=== PATIENT | female | born 1950 | race Caucasian/White ===

== ENCOUNTER → 2016-05-15 | Outpatient (CLI) | payer OTHER ==
--- NOTE | 2016-05-15 19:38 | US ---
Bilateral Lower Extremity Duplex Doppler Interventional Consult Relevant History: The patient has long-standing histories of bilateral lower extremity edema. They are constantly uncomfortable, heavy sensation, and contribute to fatigue and tiredness. They also co ntribute to cramping and pain. Symptoms have been since September 2011. She has gone through multiple alternative routes to figure out t he cause, and to potentially find a solution, including acupuncture, massage therapy, and exercise, w ithout relief. She has also wore knee-high medical grade compression stockings frequently, every day , for the last several years. She heard one of the talks on varicose veins, and is now here to evalu ate whether incompetence can be the cause of her issues. Physical Exam: This is early in the morning. The patient has had a compression stocking on already. I currently do not see any significant swelling. No ulceration, cellulitis, or discoloration. Technique: Upright duplex venous Doppler of both lower extremities are performed, followed by discus daniella with the patient. Findings Right lower extremity: Great saphenous and lesser saphenous systems are normal. Below the knee, elissa ecially at the posterior calf, coming off of the lesser saphenous system, there are multiple tributar ies that are superficially located, with the largest one at 3 mm, that have constant reflux. These a re best seen with color Doppler. There are no perforators. Some of the superficially located tribut sheridan can simply be seen as prominent veins externally, currently not evolved into ropey varicose vei ns. Left lower extremity: The great and lesser saphenous system are normal. To a lesser extent, there a re small tributaries coming off of the lesser saphenous system posteriorly and medially at the ankle that show moderate reflux. Assessment 1. Bilateral tributaries below the knee, particularly posteriorly, right significantly worse than le ft, showing constant reflux. 2. Normal great and lesser saphenous systems bilaterally. 3. I think it is definitively possible that these refluxing tributaries are the cause of persistent swelling and the above mentioned symptoms. Treatment recommendations 1. Bilateral multivessel sclerotherapy. 2. After sclerotherapy treatment, continued application of medical grade knee high compression stock ing is recommended. This was discussed in detail with the patient, who expressed understanding and agreement. Total fnge-be-eokp consultation was half an hour. Crosscutting Measure: Patient's current list of medications including all known prescriptions, over- the-counters, herbals, and vitamin/mineral/dietary supplements are reviewed. Medications' name, dosa ge, frequency, and route of administration are confirmed. Patient is a nonsmoker.
== END ==
LOC: FIMAGING 07:54
PROVIDERS: ATTEND Radiology Diagnostic Radiology
DX: I83.893 Varicose veins of bilateral lower extremities with other complications (principal)

== ENCOUNTER → 2016-05-29 | Day surgery (SDC) | payer OTHER ==
[~2016-05-29] MED LIST: SODIUM TETRADECYL SULFATE 60 MG/2 ML VIAL IV ONE
--- NOTE | 2016-05-29 18:52 | IR ---
Bilateral Multivessel Sclerotherapy Indication: Bilateral leg swelling, right worse than left. Informed Consent: Obtained from the patient. Risks and benefits were discussed. Cross Cutting Measure: Patient's current list of medications including all known prescriptions, over -the-counters, herbals, and vitamin/mineral/dietary supplements are reviewed. Medications' name, dos age, frequency, and route of administration are confirmed. Patient is a non-smoker. Prophylactic Antibiotic: Cefazolin was not ordered and administered for antimicrobial prophylaxis be cause it was not medically necessary. VTE Prophylaxis: There is not an order for VTE prophylaxis to be given within 24 hours of the proced ure end time. VTE prophylaxis was not given because it was not medically necessary. Technique: Patient is placed in prone position. A "timeout" procedure was performed to identify the correct patient and the correct procedure. 1% Xylocaine was used for local anesthetic. All element s of maximal sterile barrier technique, including cap, mask, sterile gown, sterile gloves, large ster ile sheet, hand hygiene, and 2% chlorhexidine for cutaneous antisepsis, followed. Ultrasound evaluation of potential access site was performed. After successfully identifying a paten t vessel, ultrasound guidance was used to puncture the vessel. A permanent recording was created for the patient's record. When ultrasound is used, sterile gel and probe covers are used. Indeed, more varicosities are identified in the right posterior leg. These are selected with 25-gaug e needles, and subsequently treated with 1% SDS Microfoam solution. Excellent distribution, intravas cular, of the sclerosant was confirmed by ultrasound. Similarly, to a smaller extent, posterior left calf veins are treated, as well. The patient applied a compression stocking right away after the procedure. No immediate problems. Impression: Bilateral multivessel sclerotherapy performed below the knee. Recommendation: 1. Knee high compression stocking times three days contiguous, then awake only for four more days. Total of one week. 2. Trial of taking compression stocking off on the eighth day, and call me with result on the ninth today. The above are explained to the patient, who expressed understanding.
== END | disposition home or self-care (01) ==
LOC: FIMAGING 08:43
PROVIDERS: ATTEND Radiology Diagnostic Radiology
PROC: 3E033TZ Introduction of Destructive Agent into Peripheral Vein, Percutaneous Approach (ICD-10-PCS; principal; 2016-05-29)
DX: I83.893 Varicose veins of bilateral lower extremities with other complications (principal)

== ENCOUNTER 2017-11-22 07:34 | Observation (INO) | payer OTHER ==
--- NOTE | 2017-11-22 07:51 | EDPHY ---
H & P Stated Complaint: syncope this am /sl hypotensive per ems Time Seen by Provider: 11/22/17 07:50 - Personal History Current Tetanus Diphtheria and Acellular Pertussis (TDAP): Yes - Medical/Surgical History Hx Asthma: No Hx Chronic Respiratory Disease: No Hx Diabetes: No Hx Cardiac Disease: No Hx Renal Disease: No Hx Cirrhosis: No Hx Alcoholism: No Hx HIV/AIDS: No Hx Splenectomy or Spleen Trauma: No Other PMH: denies - Social History Smoking Status: Never smoked Constitutional: Initial Vital Signs Temperature (C) 36.4 C 11/22/17 07:38 Heart Rate 56 L 11/22/17 07:38 Respiratory Rate 17 11/22/17 07:38 Blood Pressure 107/56 L 11/22/17 07:38 O2 Sat (%) 96 11/22/17 07:38 O2 Delivery Mode Room Air Allergies/Adverse Reactions: No Known Allergies Allergy (Verified 11/22/17 07:38) Home Medications: Medication Instructions Recorded Progesterone 11/22/17 Medical Decision Making ED Course/Re-evaluation: CHIEF COMPLAINT: Syncope HISTORY OF PRESENT ILLNESS: The patient is a 67 y/o female complaining of a syncopal episode this morning. Over the last several years she has had 2 syncopal episodes and did not have further work up. Upon waking up and making breakfast this morning she felt normal. At 06:15, 2 hours ago, she was sitting in a chair after returning from the bathroom and was talking with her when she became hot and sweaty. Per her , the patient then lost consciousness for around one minute and was mildly incoherent and had speech difficulties when she regained consciousness. Within 5 minutes, she was back to her baseline. She denies chest pain or shortness of breath. The patient's called EMS, who advised that the patient present to the emergency department for further workup. In addition to her syncopal episode today, she has noticed increased bilateral lower extremity swelling. She is an avid cycler and denies alcohol, tobacco or illicit drug use. Denies headache, numbness, paresthesias, abdominal pain, urinary or bowel complaints, fever. Around 3 weeks ago she returned home on a road trip from [place]. REVIEW OF SYSTEMS: A 10 point review of systems was performed and is negative with the exception of the elements mentioned in the history of present illness. PHYSICAL EXAM: HR, BP, O2 Sat, RR. Temp noted General Appearance: Alert, well hydrated, appropriate, and non-toxic appearing. Head: Atraumatic without scalp tenderness or obvious injury Eyes: Pupils equal, round, reactive to light and accommodation, EOMI, no trauma , no injection. Ears: Clear bilaterally, no perforation, normal landmarks Nose: Atraumatic, no rhinorrhea, clear. Throat: There is no erythema or exudates, no lesions, normal tonsils, mucus membranes moist. Neck: Supple, nontender, no lymphadenopathy. Respiratory: No retractions, no distress, no wheezes, and no accessory muscle use. Lungs are clear to auscultation bilaterally. Cardiovascular: Regular rate and rhythm, no murmurs, rubs, or gallops. Bilateral carotid, radial, dorsalis pedis, and posterior tibial pulses intact. Good capillary refill all extremities. Gastrointestinal: Abdomen is soft, nontender, non-distended, no masses, no rebound, no guarding, no peritoneal signs. Musculoskeletal: Normal active ROM of all extremities, atraumatic. Neurological: Alert, appropriate, and interactive. The patient has normal DTRs and non-focal cranial nerves, motor, sensory, and cerebellar exam. Skin: No rashes, good turgor, no nodules on palpation. Past medical history: Denies Past surgical history: Denies Family history: Father had multiple strokes Social history: at bedside, lives in [place], employed DIAGNOSTICS/PROCEDURES/CRITICAL CARE TIME: EKG: The 12 lead EKG was interpreted by myself as sinus rhythm with a rate of 58. See hard copy and/or "tracemaster" electronic copy for interpretation. DIFFERENTIAL DIAGNOSIS: The differential diagnosis for the patient's syncope included but was not limited to vasovagal syncope, arrhythmia, dehydration, cardiogenic causes, neurogenic causes, and blood loss. MEDICAL DECISION MAKING: The patient is a 67 y/o female presenting with a syncopal episode while sitting this morning. Her physical exam is normal. Labs and EKG ordered. 0808: I interpreted patient's EKG as sinus rhythm with a rate of 58. 0827: Reassessed patient and discussed EKG findings. I have discussed the probability for further inpatient evaluation and observation due to patients symptoms. 0851: Patient's labs are normal. 0905: Consulted with hospitalist service, Dr. Atkinson accepts admission of this patient for her syncope. - Data Points Laboratory Results: Laboratory Results 11/22/17 08:08 11/22/17 08:08 11/22/17 11/22/17 08:08 08:08 WBC 4.33 10^3/uL 10^3/uL (3.80-9.50) RBC 4.28 10^6/uL 10^6/uL (4.18-5.33) Hgb 14.4 g/dL g/dL (12.6-16.3) Hct 42.0 % % (38.0-47.0) MCV 98.1 fL fL (81.5-99.8) MCH 33.6 pg pg (27.9-34.1) MCHC 34.3 g/dL g/dL (32.4-36.7) RDW 13.3 % % (11.5-15.2) Plt Count 241 10^3/uL 10^3/uL (150-400) MPV 10.4 fL fL (8.7-11.7) Neut % (Auto) 54.6 % % (39.3-74.2) Lymph % (Auto) 35.1 % % (15.0-45.0) [place] % (Auto) 8.5 % % (4.5-13.0) Eos % (Auto) 0.9 % % (0.6-7.6) Baso % (Auto) 0.7 % % (0.3-1.7) Nucleat RBC Rel Count 0.0 % % (0.0-0.2) Absolute Neuts (auto) 2.36 10^3/uL 10^3/uL (1.70-6.50) Absolute Lymphs (auto) 1.52 10^3/uL 10^3/uL (1.00-3.00) Absolute Monos (auto) 0.37 10^3/uL 10^3/uL (0.30-0.80) Absolute Eos (auto) 0.04 10^3/uL 10^3/uL (0.03-0.40) Absolute Basos (auto) 0.03 10^3/uL 10^3/uL (0.02-0.10) Absolute Nucleated RBC 0.00 10^3/uL 10^3/uL (0-0.01) Immature Gran % 0.2 % % (0.0-1.1) Immature Gran # 0.01 10^3/uL 10^3/uL (0.00-0.10) Sodium 144 mEq/L mEq/L (135-145) Potassium 4.0 mEq/L mEq/L (3.3-5.0) Chloride 110 mEq/L mEq/L (97-110) Carbon Dioxide 25 mEq/l mEq/l (22-31) Anion Gap 9 mEq/L mEq/L (8-16) BUN 19 mg/dL mg/dL (7-23) Creatinine 0.8 mg/dL mg/dL (0.6-1.0) Estimated GFR > 60 Glucose 92 mg/dL mg/dL (70-100) Calcium 9.3 mg/dL mg/dL (8.5-10.4) NT-Pro-B Natriuret Pep 107 pg/mL pg/mL (0-125) Departure - Departure Disposition: [facility] Inpatient Acute Clinical Impression: Vasovagal episode Condition: Fair Instructions: Syncope (ED) Referrals: Carole Pearson MD [Primary Care Provider] - As per Instructions Report Scribed for: Hany Chase Report Scribed by: Sangita Hamlin Date of Report: 11/22/17 Time of Report: 08:07
--- NOTE | 2017-11-22 08:10 | CPEKG ---
Heart Rate: 58 RR Interval: 1034 P-R Interval: 148 QRSD Interval: 84 QT Interval: 452 QTC Interval: 445 P [place]: 73 QRS [place]: 54 T Wave [place]: 70 EKG Severity - NORMAL ECG - EKG Impression: SINUS RHYTHM Electronically Signed By: Rudy Henning 23-Nov-2017 22:58:12
[2017-11-22 08:27] LABS: PLATELET COUNT 241 10^3/uL (150-400)
[2017-11-22] MEDS ORDERED: ONDANSETRON 4 MG/2 ML VIAL IVP PRN (12:03)
[2017-11-22] MEDS ORDERED: ACETAMINOPHEN 325 MG TAB PO PRN (12:03)
[2017-11-22] MEDS ORDERED: ONDANSETRON DISINTEGRATING 4 MG TAB PO PRN (12:03)
--- NOTE | 2017-11-22 12:59 | GHP ---
[f rep st] HISTORY AND PHYSICAL DATE OF ADMISSION: 11/22/2017 CHIEF COMPLAINT: Syncope. HISTORY OF PRESENT ILLNESS: Ms. Hair is a very nice, 67-year-old, healthy woman who comes in wit h syncope. She had been in her usual state of excellent health this morning. She woke up feeling no rmal. Got up to get some coffee. About that time, she started to feel a bit hot and sweaty. Then s he had this episode of "blackness" which she describes as a darkening of her vision and some lighthea dedness. She went to the bathroom and had a BM, however after that, she still felt bad. Sat down at the table with her who noticed that she started to phase out and fell over sideways. She th en had some slurred speech and confusion for about 5 minutes, so he called 911. Soon after that she woke up, felt back to normal, and had no symptoms. The patient recalls the episode of blackness in h er vision and lightheadedness, however, does not recall actually passing out. She denies any palpita tions or nausea prior to the event. Interestingly, she this has happened to her before. She said a year and a half ago, she had a simila r episode of feeling hot and sweaty, getting the blackness in her vision. She again went to the bath room and passed out on the toilet, and hit her head and got a black eye. She never had this evaluate d. Prior to that, she says every 6-12 months she has these episodes where she gets hot and sweaty, g ets a dimness in her vision, but it usually resolves after 10-15 minutes with no sequelae. REVIEW OF SYSTEMS: A complete 10-point review of systems is done which is negative except as stated in the HPI. PAST MEDICAL HISTORY: Chronic lower extremity edema, treated with some compression stockings. FAMILY HISTORY: Mother and maternal aunt had breast cancer. Father had a stroke in his 80s. SOCIAL HISTORY: She is . She has step-kids and 2 cats. She is recently retired. Previously working at the [employer]. She does not smoke. She quit drinking about 8 years ago. She is quit e healthy, and cycles up to 40-50 miles at a time and never experiences any cardiac or pulmonary symp toms while cycling. CURRENT MEDICATIONS: Progesterone. ALLERGIES: No known drug allergies. PHYSICAL EXAMINATION: VITAL SIGNS: She is afebrile. Heart rate 64, blood pressure 111/56, respirat ions 14. She is 99% on room air. GENERAL: She is very pleasant, healthy-appearing 67-year-old, in no distress. She is alert and oriented. Speech is clear and fluent. HEENT: Atraumatic. Pupils eq ual, round, reactive extraocular intact. Mucous membranes moist. Oropharynx clear. NECK: Supple. Face is symmetric. HEART: Regular rate and rhythm with a very soft systolic murmur. LUNGS: Clear bilaterally without wheeze, rhonchi, or rales. ABDOMEN: Soft. No masses. No tenderness. Normal bowel sounds. EXTREMITIES: No clubbing, cyanosis, or edema. Pulses are intact peripherally. MUSCU LOSKELETAL: No joint effusions or abnormalities. SKIN: Intact. No rash. NEUROLOGIC: Intact. PSY CHIATRIC: Normal. DATA REVIEWED: LABORATORY DATA: CBC and chemistries are all within normal limits. Urinalysis shows a mild pyuria, but she is asymptomatic. Electrocardiogram is personally reviewed and shows normal sinus rhythm. ASSESSMENT: 67-year-old who presents with syncopal episode, prodrome of feeling hot and sweaty, and dimness of vision. She has had multiple episodes in the past, occurring every 6-12 months. Two thus far have been associated with syncope. I am concerned for possible shantelle or tachyarrhythmia. PLAN: Admit overnight for observation. Will monitor on telemetry. Check an echocardiogram. Consid er SpoonfedQ monitor on discharge, or soon after discharge, if we are unable to find any obvious cause of her symptoms. We will also rule her out with serial enzymes. /[id number]/MODL
--- NOTE | 2017-11-22 15:00 | ECHO ---
[email or web address] [address] [address] Main: [phone] Fax: Transthoracic Echocardiogram Name: ENDY ALVAREZ MR#: [id number] Study Date: 11/22/2017 Study Time: 12:38 PM Date of : 1950 Age: 67 year(s) Height: 165.1 cm (65 in.) Weight: 49.9 kg (110 lb.) BSA: 1.53 m2 Gender: Female Examination: Echo Indication: Cardiac: syncope Image Quality: Contrast: Requested by: Deanne Atkinson BP: 111 mmHg/56 mmHg Heart Rate: Rhythm: Normal sinus rhythm Indication: Cardiac: syncope Procedure Staff Gift Shop Assistant: Donny Villagomez RDCS Reading Physician: Jani Arias MD Requesting Provider: Conclusions: Normal size left ventricle. EF is 70 %. No regional wall motion abnormality. Normal size right ventricle. The mitral valve is normal in appearance and function. The aortic valve is normal in appearance and function. The tricuspid valve is normal in appearance and function. Trivial to mild tricuspid valve regurgitation. The pulmonary artery pressure is normal. No pericardial effusion. Normal study Measurements: Chambers Valvular Assessment AV/MV Valvular Assessment TV/PV Normal Normal Normal Name Value Range Name Value Range Name Value Range Ao Magy (MM): 2.5 cm (2.2 cm-3.7 LVOT Vmax: 1.04 m/s (0.7 m/s-1.1 TR Vmax: 2.12 mm/s ( - ) cm) m/s) TR PGmax: 18 mmHg ( - ) IVSd (2D): 0.8 cm (0.6 cm-1.1 MV E Vmax: 0.82 m/s ( - ) syst. PAP: 23 mmHg ( - ) cm) MV A Vmax: 0.63 m/s ( - ) PV Vmax: 0.79 m/s (0.6 m/s-0.9 LVDd (2D): 3.5 cm (3.9 cm-5.3 MV E/A: 1.30 ( - ) m/s) cm) PV PGmax: 2 mmHg ( - ) LVDs (2D): 2.1 cm (2.1 cm-4 cm) LVPWd (2D): 1.1 cm ( - ) LVEF (2D): 70 (>=54 %) Continued Measurements: Chambers Valvular Assessment AV/MV Valvular Assessment TV/PV Patient: ENDY ALVAREZ Study Date: 11/22/2017 Page 1 of 2 12:38 PM Name Value Name Value Name Value LADs Lon.0 cm MV E' Septal: 0.08 m/s CVP (est.): 5 mmHg LA Area: 13.1 cm2 MV E/E' Septal: 10.70 Findings: Left Ventricle: Normal size left ventricle. No LV hypertrophy. Normal global systolic LV function. EF is 70 %. No regional wall motion abnormality. Normal diastolic LV function. Right Ventricle: Normal size right ventricle. Left Atrium: The left atrium is normal in size. Right Atrium: The right atrium is normal in size. Mitral Valve: The mitral valve is normal in appearance and function. Aortic Valve: The aortic valve is normal in appearance and function. Tricuspid Valve: The tricuspid valve is normal in appearance and function. Trivial to mild tricuspid valve regurgitation. The pulmonary artery pressure is normal. Pulmonic Valve: The pulmonic valve is normal in appearance and function. Aorta: The aorta is normal. Pericardium: No pericardial effusion. (No Signature Object) Patient: ENDY ALVAREZ Study Date: 11/22/2017 Page 2 of 2 12:38 PM [id number]
[2017-11-22] MEDS ORDERED: IOPAMIDOL (ISOVUE 370) 100 ML BTL IV ONE (18:28)
[2017-11-22] MEDS ORDERED: TEMAZEPAM 15 MG CAP PO PRN (20:28)
[2017-11-23 08:00] VITALS: BP 105/68
--- NOTE | 2017-11-23 10:53 | GDS ---
[f rep st] DISCHARGE SUMMARY DIAGNOSIS: Syncope, unable to rule out shantelle- or tachyarrhythmia. Patient asymptomatic throughout h er stay. PROCEDURES DONE: 1. Carotid Doppler, questionable of acute clot. Followup neck CT angiogram, which showed very mild atherosclerotic features with no hemodynamically significant common carotid or internal carotid arter y stenosis, dissection, or interarterial thrombus. 2. Echocardiogram: Normal. 3. Telemetry: Normal. HOSPITAL COURSE: The patient is a very healthy 67-year-old who comes in with an episode of syncope. She has had 1 previous syncopal event and multiple events where she nearly passed out, but did not. Evaluation included the above procedures. Her heart rate and blood pressure remained stable through out her stay here. At this time, I still am unable to rule out an obvious tachy- or bradyarrhythmia as to the cause of her symptoms. Given the fact she gets these very infrequently every 12 months or s o, I think it would be prudent to have her follow up with [facility] and have a LINQ monitor place d, in case she has further episodes. The patient is in agreement with this plan. She will follow up with her primary care and call [facility] to schedule an appointment. CONDITION ON DISCHARGE: Good. Vital signs are stable. DISCHARGE MEDICATIONS: Please see discharge medication form. FOLLOWUP: Follow up with [facility] for possible LINQ monitor, and follow up with her PCP in 2 we eks post hospitalization. /[id number]/MODL
== END 2017-11-23 10:42 | disposition home or self-care (01) ==
LOC: F2W 10:30
PROVIDERS: ADMIT Internal Medicine; ATTEND Internal Medicine
DX: R55 Syncope and collapse (principal)
CPT/HCPCS: 70498; 93005; 93306; 93880; G0378; Q9967; 84484-PO

== ENCOUNTER → 2018-08-06 | Outpatient (CLI) | payer OTHER | LOC: FIMAGING 09:55 → EEVIPCON 10:10 | PROVIDERS: ATTEND Family Medicine | DX: Z12.31 Encounter for screening mammogram for malignant neoplasm of breast (principal) ==